=== PATIENT | female | born 1945 | race Caucasian/White ===

== ENCOUNTER 2018-07-21 09:57 | Emergency (ER) | payer MEDICARE, BC ==
[~2018-07-21] VITALS: Ht 160 cm; Wt 124.1 kg
[2018-07-21 10:04] VITALS: TEMP 98.2
[2018-07-21] MEDS ORDERED: K-TAB10 (10:28)
[2018-07-21] MEDS ORDERED: NORMODYNE200 MG PO (10:29)
[2018-07-21] MEDS ORDERED: LOTENSIN HCT 201 TAB PO (10:29)
[2018-07-21] MEDS ORDERED: CATAPRES 0.1MG0.1 MG PO (10:30)
[2018-07-21] MEDS ORDERED: PERCOCET 325 MG1 TA2 PO (13:26)
[2018-07-21 14:40] VITALS: BP 198/84; PULSE 71
== END 2018-07-21 14:40 | disposition home or self-care (01) ==
LOC: COL.ER 09:57
DX: S43.015A Anterior dislocation of left humerus, initial encounter (principal); I10 Essential (primary) hypertension; G47.33 Obstructive sleep apnea (adult) (pediatric); W01.10XA Fall on same level from slipping, tripping and stumbling with subsequent striking against unspecified object, initial encounter; Y92.002 Bathroom of unspecified non-institutional (private) residence as the place of occurrence of the external cause
CPT/HCPCS: J2405; J2704; J3010; J7030

== ENCOUNTER → 2018-08-01 | Outpatient (CLI) | payer MEDICARE, BC ==
[~2018-08-01] MED LIST: CATAPRES 0.1MG0.1 MG PO; K-TAB10; LOTENSIN HCT 201 TAB PO; NORMODYNE200 MG PO; PERCOCET 325 MG1 TA2 PO
== END ==
LOC: ZCOL.LAB 13:48
DX: Z01.812 Encounter for preprocedural laboratory examination (principal); Z11.2 Encounter for screening for other bacterial diseases; Z86.14 Personal history of Methicillin resistant Staphylococcus aureus infection

== ENCOUNTER 2023-01-11 09:50 | Day surgery (SDC) | payer MEDICARE, BC ==
[~2023-01-11] VITALS: Ht 160 cm; Wt 93.4 kg
[2023-01-11 11:08] VITALS: BP 145/84; PULSE 80; TEMP 97.3
[2023-01-11] MEDS ORDERED: NORVASC 10MG10 MG PO (12:24)
[2023-01-11] MEDS ORDERED: LOTENSIN HCT 201 TAB (12:29)
[2023-01-11] MEDS ORDERED: COREG12.5 MG PO (12:29)
[2023-01-11 12:30] VITALS: BP 111/69; PULSE 88; TEMP 97.3
[2023-01-11] MEDS ORDERED: CATAPRES 0.1MG0.1 MG PO (12:30)
--- NOTE | 2023-01-11 12:30 | NUR ---
1230PATIENT RETURNS TO ROOM 8 VIA CART. PATIENT IS ALERT AND ORIENTED. PATIENT AMBULATES TO RECLINER WITH THE ASSISTANCE OF 2 NURSES. RESPIRATIONS EVEN AND UNLABORED. VITAL SIGNS OBTAINED. PATIENT SPOUSE IN ROOM. PATIENT REQUESTED ORANGE JUICE, NO DIFFICULTIES SWALLOWING. 1245 DOCTOR IN TO SPEAK WITH PATIENT. 1250 THIS NURSE REVIEWED DISCHARGE INSTRUCTIONS WITH PATIENT AND PATIENT SPOUSE. BOTH VERBALIZED UNDERSTANDING. 1300 DISCONTINUED IV FROM RIGHT WRIST WITH NO DIFFICULTIES. 1310 PATIENT DISCHARGES FROM UNIT VIA WHEELCHAIR IN STABLE CONDITION. PATIENT SPOUSE DROVE PATIENT HOME.
[2023-01-11] MEDS ORDERED: K-TAB10 PO (12:31)
[2023-01-11] MEDS ORDERED: NATURAL IRON65 MG PO (12:32)
[2023-01-11] MEDS ORDERED: XARELTO20 MG PO (12:32)
[2023-01-11 12:45] VITALS: BP 145/84; PULSE 75
[2023-01-11 13:00] VITALS: BP 153/70; PULSE 79
== END 2023-01-11 13:10 | disposition home or self-care (01) ==
LOC: SDCO 09:50
DX: Z12.11 Encounter for screening for malignant neoplasm of colon (principal); D12.0 Benign neoplasm of cecum; K57.30 Diverticulosis of large intestine without perforation or abscess without bleeding; I16.0 Hypertensive urgency; G47.33 Obstructive sleep apnea (adult) (pediatric); Z99.81 Dependence on supplemental oxygen
CPT/HCPCS: J2704; J7120